=== PATIENT | female | born 1965 | race Caucasian/White ===

== ENCOUNTER 2017-04-11 22:11 | Emergency (ER) | payer BC ==
[~2017-04-11] VITALS: Ht 162.6 cm; Wt 89.2 kg
[2017-04-11 22:19] VITALS: TEMP 36.9; Ht 162.6 cm; Wt 89.2 kg
[2017-04-11 23:32] LABS: HEMATOCRIT 44.8 % (37-47); HEMOGLOBIN 15.3 g/dL (12.0-16.0); MEAN CELL VOLUME 94.9 fL (80-100); MEAN CORPUSCULAR HEMOGLOBIN 32.4 pg (25-34); MEAN CORPUSCULAR HGB CONC 34.2 g/dl (32-36); MEAN PLATELET VOLUME 9.4 fL (7.4-10.4); PLATELET COUNT 246 K/uL (130-400); RED CELL DISTRIBUTION WIDTH CV 13.2 % (11.5-14.5); WHITE BLOOD COUNT 5.68 K/uL (4.8-10.8)
[2017-04-11 23:40] LABS: ALBUMIN 4.2 gm/dl (3.4-5.0); ALT/SGPT 47 U/L (12-78); AST/SGOT 29 U/L (15-37); BLOOD UREA NITROGEN 9 mg/dl (7-18); CALCIUM 9.2 mg/dl (8.5-10.1); CARBON DIOXIDE 27 mmol/L (21-32); CREATININE 1.04 mg/dl (0.60-1.20); GLUCOSE 120 mg/dl (70-99); POTASSIUM 3.6 mmol/L (3.5-5.1); PTT PATIENT 26.1 SECONDS (21.0-31.0); SODIUM 142 mmol/L (136-145)
[2017-04-11 23:45] LABS: ALKALINE PHOSPHATASE 72 U/L (45-117); CKMB 1.7 ng/ml (0.5-3.6); TOTAL PROTEIN 7.9 gm/dl (6.4-8.2)
[2017-04-12] MEDS ORDERED: LEVO125T72 PO (00:48)
[2017-04-12] MEDS ORDERED: ASPI81TA28 PO (00:48)
[2017-04-12] MEDS ORDERED: DIPH1TAB87 PO (00:49)
[2017-04-12 01:56] VITALS: O2SAT 98
[2017-04-12 02:00] VITALS: BP 153/114
--- NOTE | 2017-04-12 02:03 | EMERGENCY ROOM VISIT NOTE ---
History First contact with patient: 23:22 Chief Complaint: CHEST PAIN Stated Complaint: CHEST PAIN NUMBNESS IN ARM VERY HIGH BLOOD PRESSUR Nursing Triage Summary: pt reports high blood pressure with L shoulder pain and L arm pain X1 month pt denies incrased sob or NV History of Present Illness The patient is a 51 year old female who presents to the Emergency Room with complaints of left shoulder pain and high blood pressure. The patient reports that she has had an achy pain in her left shoulder for the past one month. She states the pain seems better when she is active. She states the pain radiates into the left arm and she has occasional tingling in the fingers. She had similar episodes for years ago and states she feels it was due to stress. She states the pain is better when she takes a deep breath. The patient additionally reports that she was seen at her primary care provider's office after [place] and her blood pressure was slightly elevated at 130/90. She was instructed to check her blood pressure at home. She got a blood pressure cuff and checked it today and states it was 180/117. The patient does not take blood pressure medication. She reports that she became concerned because her blood pressure was elevated and came here. She denies shortness of breath, headache/neck pain, numbness or weakness. Review of Systems A complete 10 point review of systems was reviewed with the patient with pertinent positives and negatives as per history of present illness. All else were negative. Past Medical/Surgical History Medical Problems: (1) Fibromyalgia (2) Hypothyroidism Surgical Problems: (1) H/O wisdom tooth extraction (2) History of appendectomy (3) History of cholecystectomy Social History Smoking Status: Never Smoker Alcohol Use: occasionally Marital Status: Housing Status: lives with significant other Current/Historical Medications Scheduled Aspirin (Aspirin Ec), 81 MG PO DAILY Diphenhydramine Hcl (Benadryl Allergy), 1 TAB PO DIRECTED Levothyroxine Sodium (Synthroid), 125 MCG PO DAILY Physical Exam Vital Signs Date Time Temp Pulse Resp B/P (MAP) Pulse Ox O2 Delivery O2 Flow Rate FiO2 04/12/17 02:11 77 04/12/17 02:00 153/114 04/12/17 01:56 72 20 98 04/12/17 01:51 72 15 96 04/12/17 01:36 75 20 95 04/12/17 01:30 153/102 04/12/17 01:21 73 18 97 04/12/17 01:06 79 18 96 04/12/17 01:01 140/107 04/12/17 00:55 74 16 95 04/12/17 00:40 76 18 95 04/12/17 00:35 79 17 92 04/12/17 00:30 163/112 04/12/17 00:20 75 18 95 04/12/17 00:05 75 21 96 04/12/17 00:00 156/115 04/11/17 23:51 81 16 96 04/11/17 23:36 84 20 97 04/11/17 23:31 182/132 04/11/17 23:27 Room Air 04/11/17 23:21 82 25 97 04/11/17 23:06 79 15 97 04/11/17 23:02 75 04/11/17 23:01 81 21 141/105 93 04/11/17 22:56 76 18 97 04/11/17 22:51 76 17 96 Room Air 04/11/17 22:44 170/116 04/11/17 22:19 36.9 92 20 195/124 97 Room Air Physical Exam VITALS: Vitals are noted on the nurse's note and reviewed by myself. Vital signs stable. GENERAL: This is a 51-year-old female, in no acute distress, nondiaphoretic, well-developed well-nourished. SKIN: The skin was without rashes. EARS: External auditory canals clear, tympanic membranes pearly doyle without erythema or effusion bilaterally. EYES: Pupils equal round and reactive to light and accommodation. MOUTH: Mucous membranes moist. Tonsils are not enlarged. Pharynx without erythema or exudate. NECK: Supple without nuchal rigidity. No lymphadenopathy. Cervical spine is nontender. HEART: Regular rate and rhythm without murmurs gallops or rubs. LUNGS: Clear to auscultation bilaterally without wheezes, rales or rhonchi. No retractions or accessory muscle use. MUSCULOSKELETAL: Strength 5/5 throughout. NEURO: Patient was alert and oriented to person place and time. Medical Decision & Procedures ER Provider Diagnostic Interpretation: CHEST: No acute cardiopulmonary abnormalities. per my interpretation Laboratory Results 04/11/17 22:55 04/11/17 22:55 Test 1/29/18 22:55 Red Blood Count 4.72 M/uL (4.2-5.4) Mean Corpuscular Volume 94.9 fL (80-100) Mean Corpuscular Hemoglobin 32.4 pg (25-34) Mean Corpuscular Hemoglobin Concent 34.2 g/dl (32-36) RDW Standard Deviation 46.0 fL (36.4-46.3) RDW Coefficient of Variation 13.2 % (11.5-14.5) Mean Platelet Volume 9.4 fL (7.4-10.4) Prothrombin Time 10.0 SECONDS (9.0-12.0) Prothromb Time International Ratio 1.0 (0.9-1.1) Activated Partial Thromboplast Time 26.1 SECONDS (21.0-31.0) Partial Thromboplastin Ratio 1.0 Anion Gap 9.0 mmol/L (3-11) Est Creatinine Clear Calc Drug Dose 69.2 ml/min Estimated GFR () 72.0 Estimated GFR (Non- 62.2 BUN/Creatinine Ratio 8.4 (10-20) Calcium Level 9.2 mg/dl (8.5-10.1) Total Bilirubin 0.4 mg/dl (0.2-1) Aspartate Amino Transf (AST/SGOT) 29 U/L (15-37) Alanine Aminotransferase (ALT/SGPT) 47 U/L (12-78) Alkaline Phosphatase 72 U/L (45-117) Total Creatine Kinase 192 U/L (26-192) Creatine Kinase MB 1.7 ng/ml (0.5-3.6) Creatine Kinase MB Ratio 0.9 (0-3.0) Troponin I < 0.015 ng/ml (0-0.045) Total Protein 7.9 gm/dl (6.4-8.2) Albumin 4.2 gm/dl (3.4-5.0) Globulin 3.7 gm/dl (2.5-4.0) Albumin/Globulin Ratio 1.1 (0.9-2) ECG Rate (beats per minute): 80 Rhythm: normal sinus Findings: no acute ischemic change, no ectopy Comparison ECG Date: no prior available Medical Decision Differential diagnosis includes acute coronary syndrome, pulmonary embolism, pneumothorax, pericarditis, myocarditis, endocarditis, anxiety, musculoskeletal pain, GERD, costochondritis, pneumonia, among others. The patient is a 51-year-old female who presents today complaining of high blood pressure as well as left shoulder pain. The left shoulder pain and seems to be chronic for the patient and has been ongoing for greater than 1 month. Her description sounds consistent with cervical radiculopathy or some other source of musculoskeletal pain. Labs revealed no leukocytosis or anemia. There were no concerning electrolyte abnormalities. Troponin was not elevated. EKG was interpreted by myself and shows a normal sinus rhythm without ischemia or ectopy. Patient's blood pressure was found to be persistently elevated throughout her stay here. There is no evidence of hypertensive urgency /emergency. I do feel the patient will likely need an antihypertensive, which can be prescribed by her primary care provider in follow-up. Patient was advised to recheck her pressure twice daily and keep a log of her findings for PCP follow-up. Based on the patient's presentation and work up, I feel the patient is stable for outpatient treatment. The patient was educated to return to the emergency department for any worsening of their current condition or new/concerning symptoms. She will follow up with her primary care provider. Medication Reconcilliation Current Medication List: was personally reviewed by me Blood Pressure Screening Patient's blood pressure: Elevated blood pressure Blood pressure disposition: Referred to PCP Impression Primary Impression: Hypertension Additional Impression: Shoulder pain, left Departure Information Dispostion Home / Self-Care Condition GOOD Referrals Karissa Ornelas D.O. (PCP) Patient Instructions [facility] Additional Instructions You have been treated in the Emergency Department for your elevated blood pressure. Check your blood pressure twice daily and keep a log of your blood pressures. For pain control, you can use the following [id number] medicines (if >12 yo): - Regular strength (325mg/tab) Tylenol (acetaminophen) 2 tabs every 4-6 hours as needed. Do not exceed 12 tablets in a 24 hour period. Avoid taking more than 4 grams (4000 mg) of Tylenol per day. This includes any other sources of acetaminophen you may take on a regular basis. - Regular strength (200 mg/tab) Advil (ibuprofen) 1-2 tabs every 4-6 hours as needed. Do not exceed a dose of 3200 mg per day. You should schedule a follow-up appointment with your Primary Care Provider in 2 -3 days for further evaluation from today's Emergency Department visit. Return to the Emergency Department if your current symptoms worsen despite treatment course outlined above, or if you develop any of the following symptoms : worsening chest pain, associated jaw/arm pain, nausea, dizziness, shortness of breath, bloody cough, or fainting. Problem Qualifiers
[2017-04-12 02:11] VITALS: PULSE 77
--- NOTE | 2017-04-12 07:16 | DIAGNOSTIC IMAGING REPORT ---
CHEST ONE VIEW PORTABLE CLINICAL HISTORY: 51 years-old Female presenting with chest pain, htn. TECHNIQUE: Portable upright AP view of the chest was obtained. COMPARISON: None. FINDINGS: Tortuosity of the descending thoracic aorta. Cardiac silhouette top normal in size. Double retrocardiac density may relate to a prominent aortic contour or left atrial enlargement. Minimal bandlike opacity at the left lung base. No other focal infiltrate. No large effusion or pneumothorax. Osseous structures normal. Upper abdomen normal. IMPRESSION: 1. Prominence and tortuosity of the aorta, which is likely related to atherosclerosis. Otherwise no acute cardiopulmonary disease. Electronically signed by: David Harrington M.D. 04/12/2017 7:14 AM Dictated Date/Time: 04/12/2017 7:13 AM
== END 2017-04-12 02:11 | disposition home or self-care (01) ==
LOC: C.EDB 22:12 → C.EDC 04-12 02:11
DX: I10 Essential (primary) hypertension (principal); M25.512 Pain in left shoulder; E03.9 Hypothyroidism, unspecified; Z98.818 Other dental procedure status; Z90.49 Acquired absence of other specified parts of digestive tract; Z90.89 Acquired absence of other organs; Z79.82 Long term (current) use of aspirin; Z79.899 Other long term (current) drug therapy